=== PATIENT | female | born 1955 | race Caucasian/White ===

== ENCOUNTER 2021-06-20 09:05 | Outpatient (CLI) | payer MEDICARE, SELFPAY ==
--- NOTE | ~2021-06-20 | MM_ITS ---
EXAMINATION: MM screening [facility] BI w reggie HISTORY: Screening mammogram TECHNIQUE: Craniocaudal and mediolateral oblique 3-D tomosynthesis images were obtained and synthetic 2-D images were generated. CAD analysis was submitted and interpreted. COMPARISON: 02/20/2019 bilateral digital screening mammogram BREAST PARENCHYMAL COMPOSITION: The breasts are almost entirely fatty. FINDINGS: There is no evidence of suspicious mass, calcification, or architectural distortion to sugg est malignancy in either breast. There has been no suspicious interval change. IMPRESSION: 1. No mammographic evidence of malignancy. 2. Recommend routine screening mammography in one year. BI-RADS Category 1: Negative Reviewed, dictated and finalized at location A.
[2021-06-20 10:08] LABS: Basophils Absolute Auto 0.1 K/mm3 (0.0-0.1); Basophils Percent Auto 0.6 % (0.2-1.2); Eosinophils Absolute Auto 0.1 K/mm3 (0-0.3); Eosinophils Percent Auto 1.3 % (0-4.4); Hematocrit 48.7 % (37.0-47.0); Hemoglobin 15.5 g/dL (12.0-15.0); Immature Granulocyte Absolute 0.04 K/mm3 (0.00-0.031); Immature Granulocyte Percent A 0.4 % (0-0.5); Lymphocytes Absolute Auto 2.01 K/mm3 (0.9-3.2); Lymphocytes Percent Auto 21.2 % (18.3-44.2); Mean Corpuscular HGB Conc 31.8 g/dl (32-36); Mean Corpuscular Hemoglobin 31.5 pg (26-34); Mean Platelet Volume 9.2 fl (7.4-10.4); Monocytes Absolute Auto 0.8 K/mm3 (0.1-0.6); Monocytes Percent Auto 8.5 % (2.6-8.5); Neutrophils Absolute Auto 6.5 K/mm3 (1.3-6.7); Platelet Count Result 249 k/mm3 (150-375); Red Blood Count 4.92 M/mm3 (4.2-5.4); Red Cell Distribution Width 14.4 % (11.5-14.5); White Blood Count 9.5 K/mm3 (4.5-10.0)
[2021-06-20 10:19] LABS: Alanine Aminotransferase 27 U/L (4-35); Albumin Level 4.2 g/dL (3.5-5.1); Alkaline Phosphatase 83 U/L (38-126); Anion Gap 8 mmol/L (8-16); Aspartate Amino Transferase 25 U/L (14-36); Bilirubin,Total 0.4 mg/dL (0.2-1.3); Blood Urea Nitrogen 25 mg/dL (7-17); Calcium 10.4 mg/dL (8.4-10.2); Carbon Dioxide 29 mmol/L (22-30); Chloride 103 mmol/L (98-107); Cholesterol 200 mg/dL (0-200); Estimated Glomerular Filt Rate > 60; Glucose 104 mg/dL (65-110); HDL Direct 82 mg/dL; Potassium 4.3 mmol/L (3.4-5.0); Sodium 140 mmol/L (137-145); Triglycerides 97 mg/dL (<150)
[2021-06-20 10:30] LABS: LDL Cholesterol Direct 86 mg/dL
[2021-06-20 10:41] LABS: Hemoglobin A1C 5.6 % (<5.7)
== END 2021-06-20 09:06 | disposition home or self-care (01) ==
PROVIDERS: PCP Family Medicine; Visit Provider Family Medicine
DX: Z12.31 Encounter for screening mammogram for malignant neoplasm of breast (principal); Z51.81 Encounter for therapeutic drug level monitoring; Z79.899 Other long term (current) drug therapy; E78.5 Hyperlipidemia, unspecified; I10 Essential (primary) hypertension; R73.03 Prediabetes
CPT/HCPCS: 36415; 77063; 77067; 80053; 80061; 82248; 83036; 85025

== ENCOUNTER 2021-08-14 11:13 | Outpatient (CLI) | payer MEDICARE, SELFPAY ==
[2021-08-17 07:11] LABS: Ionized Calcium 5.4 mg/dL (4.8-5.6)
== END 2021-08-14 11:14 | disposition home or self-care (01) ==
LOC: ANHLAB 11:17
PROVIDERS: PCP Family Medicine; Visit Provider Family Medicine
DX: E83.52 Hypercalcemia (principal)
CPT/HCPCS: 36415; 82330

== ENCOUNTER 2023-04-09 13:52 | Outpatient (CLI) | payer MEDICARE, SELFPAY ==
--- NOTE | ~2023-04-09 | DEXA_ITS ---
Bone Density Report Name: DINORA PHAN Age: 67 Sex: Female Ethnicity: White Date of : 1955 Indication: postmenopausal; screening for osteoporosis; Referring Provider: SETIVEN, REGGIE Cr Study: Bone densitometry was performed. Exam Date: April 09, 2023 Accession number: [id number] Bone Density: Region BMD T-score Z-score Classification AP Spine(L1-L4) 1.127 0.7 2.8 Normal Femoral Neck (Left) 0.568 -2.5 -0.7 Osteoporosis Total Hip (Left) 0.702 -2.0 -0.5 Osteopenia Femoral Neck (Right) 0.594 -2.3 -0.5 Osteopenia Total Hip (Right) 0.793 -1.2 0.3 Osteopenia Total Hip Mean 0.748 -1.6 -0.1 Osteopenia World Health Organization criteria for BMD impression classify patients as: Normal (T-score at or above -1.0), Osteopenia (T-score between -1.0 and -2.5), or Osteoporosis (T-score at or below -2.5). 10-year Fracture Risk: FRAX not reported because: Some T-score for Spine Total or Hip Total or Femoral Neck at or below -2.5 Clinical Information Provided by Patient: Smokes Has used the following medications: Calcium Menopause Age: 46 Onset of menses at age 9 Number of children 1 Impression: The patient has osteoporosis, based on the Left Femoral Neck T-score. The patient has risk factors, including: smoking. Discussion: INCREASED RISK OF FRACTURE. BONE DENSITY IS UNDESIRABLY LOW AT ONE OR MORE SKELETAL SITES, CONSISTENT WITH POSTMENOPAUSAL OSTEOPOROSIS. This patient's lowest T-score meets the World Health Organization's (WHO) criteria for osteoporosis at one or more sites (T-score -2.5 or below). In untreated patients, the risk of osteoporotic fracture increases approximately two-fold for each 1.0 SD decrease in T-score. Low bone density is not the only risk factor for fracture; also consider factors such as patient's age, frailty or poor health, risk of falling, risk of injury, previous osteoporotic fracture, family history of osteoporosis, cigarette smoking, low body weight, etc. Not everyone with low bone mineral density has osteoporosis; osteomalacia and other metabolic bone disorders should also be considered. Patients who have osteoporosis should be evaluated for specific diseases and conditions (secondary causes) that may cause or contribute to bone loss. The [place] [employer]ocrinologists (AACE) and National Osteoporosis Foundation (NOF) recommend pharmacologic intervention for all postmenopausal women whose T-score is in this range. The patient should follow a healthful lifestyle (good nutrition with adequate calcium and vitamin D, and appropriate weight-bearing exercise). Follow-Up: Consider a repeat BMD and Vertebral Fracture Assessment (VFA) exam in 2 years or sooner if medically necessary, to reassess this patient's status. Reported by: [facility] on 04/09/2023 2
--- NOTE | ~2023-04-09 | MM_ITS ---
EXAMINATION: MM screening [facility] BI w reggie HISTORY: Screening mammogram TECHNIQUE: Craniocaudal and mediolateral oblique 3-D tomosynthesis images were obtained and synthetic 2-D images were generated. CAD analysis was submitted and interpreted. COMPARISON: 06/20/2021, 02/20/2019 BREAST PARENCHYMAL COMPOSITION: There are scattered areas of fibroglandular density. FINDINGS: No suspicious mass, calcification, or architectural distortion are identified in either shalonda ast to suggest malignancy. There has been no suspicious interval change. IMPRESSION: 1. No mammographic evidence of malignancy. 2. Recommend routine screening mammography in one year. BI-RADS Category 1: Negative Reviewed, dictated and finalized at location A.
== END 2023-04-09 13:53 | disposition home or self-care (01) ==
LOC: ANHIMG 13:57
PROVIDERS: PCP Family Medicine; Visit Provider Family Medicine
DX: Z12.31 Encounter for screening mammogram for malignant neoplasm of breast (principal); Z78.0 Asymptomatic menopausal state; M81.0 Age-related osteoporosis without current pathological fracture; M85.852 Other specified disorders of bone density and structure, left thigh; M85.851 Other specified disorders of bone density and structure, right thigh
CPT/HCPCS: 77063; 77067; 77080

== ENCOUNTER 2023-09-03 09:40 | Outpatient (CLI) | payer MEDICARE, SELFPAY ==
--- NOTE | ~2023-09-03 | XR_ITS ---
Right Knee Technique: AP, lateral, and oblique views were obtained. Clinical History: Pain Findings: No fracture or dislocation is seen. Osseous alignment is anatomic. There is mild tricompart mental degenerative change. Soft tissues are unremarkable. No joint effusion is seen. Impression: No fracture or dislocation. Mild tricompartmental degenerative change. Reviewed, dictated and finalized at location . Impression: No fracture or dislocation. Mild tricompartmental degenerative change.
== END 2023-09-03 09:41 | disposition home or self-care (01) ==
LOC: ANHIMG 09:43
PROVIDERS: PCP Family Medicine; Visit Provider Nurse Practitioner Family
DX: M25.561 Pain in right knee (principal)
CPT/HCPCS: 73564

== ENCOUNTER 2024-02-18 15:36 | Outpatient (CLI) | payer MEDICARE, SELFPAY ==
--- NOTE | ~2024-02-18 | MR_ITS ---
EXAMINATION: MR lumbar spine wo con DATE: 02/18/2024 17:06 INDICATION: Degeneration of lumbar intervertebral discs. Low back pain. Numbness and tingling down bharti th legs. TECHNIQUE: Magnetic resonance imaging (MRI) of the lumbar spine was performed without intravenous con trast. Sequences included sagittal T2-weighted FSE, sagittal T2-weighted FS FSE, sagittal T1-weighted FSE, and axial T2-weighted FSE. COMPARISON: Lumbar spine MRI 09/07/2019 FINDINGS: There is 5 degrees levocurvature of lumbar spine. There is 3 mm retrolisthesis of L3 on L4, L4-L5, and L5 on S1. There is mild chronic anterior wedging of T12 and L1 vertebral bodies. There is mildly decreased disc height at T11-T12, moderately decreased disc height at T12-L1, mildly decrease d disc height at L2-L3, moderately decreased disc height at L3-L4 and L4-L5, and severely decreased d isc height at L5-S1. The distal spinal cord signal intensity is normal. The conus medullaris is at L2 . The following disc levels are specifically discussed: L1-L2: There is a central protrusion. There is severe bilateral facet joint osteoarthritis. There is no neural foraminal stenosis. There is mild central canal stenosis. L2-L3: The disc is bulging and has an annular fissure. There is severe bilateral facet joint osteoart hritis. There is mild bilateral neural foraminal stenosis. There is mild central canal stenosis. L3-L4: The disc is bulging and has an annular fissure. There is severe bilateral facet joint osteoart hritis. There is mild bilateral neural foraminal stenosis. There is mild central canal stenosis. L4-L5: The disc is bulging and has an annular fissure. There is moderate right and severe left facet joint osteoarthritis. There is mild right and moderate left neural foraminal stenosis. There is moder ate central canal stenosis. L5-S1: The disc is bulging and has an annular fissure. There is severe bilateral facet joint osteoart hritis. There is moderate bilateral neural foraminal stenosis. There is severe central canal stenosis . IMPRESSION: 1. Severe lumbar spondylosis, worsened from 09/07/2019. Reviewed, dictated and finalized at location A.
--- NOTE | ~2024-02-18 | CT_ITS ---
EXAMINATION:CT lung screening DATE: 02/18/2024 16:02 INDICATION: Personal history of nicotine dependence. Current smoker with 54 pack year history. TECHNIQUE: Computed tomography (CT) of the chest was performed without intravenous contrast. Automate d exposure control and iterative reconstruction technique were employed. The dose-length product (DLP ) was 104.50 mGy-cm. COMPARISON: None. FINDINGS: A calcified right lung nodule and calcified right hilar lymph nodes are consistent with old granulomatous disease. There is mild emphysema. There are scattered groundglass nodules in the lungs measuring up to 5 mm. No pleural effusion. The heart size is normal. No pericardial effusion. There is a small sliding hiatal hernia. Calcifications in the liver and spleen are consistent with old gran ulomatous disease. There are masses in the adrenal glands measuring low attenuation measuring up to 2 .4 cm on the left, consistent with adenomas. There is severe cervical spondylosis and moderate thorac ic spondylosis. IMPRESSION: 1. Lung-RADS category 2: Benign appearance or behavior. Continue annual screening with noncontrast lo w-dose chest CT in 12 months. Reviewed, dictated and finalized at location A. IMPRESSION: 1. Lung-RADS category 2: Benign appearance or behavior. Continue annual screeni ng with noncontrast low-dose chest CT in 12 months.
--- NOTE | ~2024-02-18 | XR_ITS ---
XR_[id number] 02/18/2024 16:11 Indication: Neck pain Procedure: 5 views of the cervical spine Comparison: No prior studies for comparison. Findings: Vertebral body heights are maintained. No acute fracture or traumatic malalignment. There i s degenerative disc disease and endplate hypertrophy at C4-5, C5-6 and C6-7. No prevertebral soft tis prakash swelling. There is advanced multilevel uncinate and facet hypertrophy. Lung apices are normal. Th ere is carotid atherosclerosis. Odontoid process is unremarkable. Impression: 1: Moderate cervical spondylosis. Reviewed, dictated and finalized at location B. Impression: 1: Moderate cervical spondylosis.
== END 2024-02-18 15:37 | disposition home or self-care (01) ==
PROVIDERS: PCP Family Medicine; Visit Provider Family Medicine
DX: Z12.2 Encounter for screening for malignant neoplasm of respiratory organs (principal); M51.36 Other intervertebral disc degeneration, lumbar region; M43.06 Spondylolysis, lumbar region; M43.02 Spondylolysis, cervical region; Z87.891 Personal history of nicotine dependence; Z12.31 Encounter for screening mammogram for malignant neoplasm of breast
CPT/HCPCS: 71271; 72040; 72148

== ENCOUNTER 2024-05-26 12:29 | Emergency (ER) | payer MEDICARE, SELFPAY ==
--- NOTE | ~2024-05-26 | US_ITS ---
EXAMINATION: US venous doppler [facility] DATE: 05/26/2024 14:36 INDICATION: Lower limb pain TECHNIQUE: Grayscale ultrasound images without and with compression and Doppler ultrasound images of the left lower extremity veins were obtained. COMPARISON: None. FINDINGS: The visualized portions of left common femoral vein, profunda (deep) femoral vein, femoral vein, popl iteal vein, peroneal veins, posterior tibial veins, gastrocnemius vein and greater saphenous vein out flow are patent. 3.9 x 1.9 x 1.7 cm Thurston's cyst at the left popliteal fossa. IMPRESSION: 1. No deep venous thrombosis in the left lower limb. 2. Moderate-sized Thurston's cyst at the left popliteal fossa. Reviewed, dictated and finalized at location B.
[2024-05-26 12:34] VITALS: BP 104/78; PULSE 102; RESP 16; TEMP 36.5
--- NOTE | 2024-05-26 14:43 | ED.GENADULT ---
HPI - General Adult General Chief complaint: Extremity Injury, Lower Stated complaint: L leg pain Time Seen by Provider: 05/26/24 13:44 History of Present Illness HPI narrative: Patient 69-year-old female who presents emergency department with chief complaint of left lower extremity pain. Patient reports she has pain in the left calf area reports that also has a tingling sensation in the calf. The patient reports he has had pain in the left gluteal area and has had sciatic issues the patient denies bowel or bladder incontinence denies footdrop Related Data Allergies Allergy/AdvReac Type Severity Reaction Status Date / Time pregabalin Allergy Unknown Unknown Verified 05/26/24 13:22 Review of Systems Review of Systems: A 10 system review of systems was completed on the patient and is negative except for what is stated in the HPI. Nursing and ancillary documentation was reviewed. [facility] Family History Family History Father Diabetes mellitus Hypertension Mother Family history of throat cancer Other Family history of arthritis Social History Social History Smoking status: Current every day smoker Alcohol intake: current Exam Narrative: GENERAL: Well-appearing, well-nourished, and in no acute distress. HEAD: Normocephalic, atraumatic. EYES: PERRLA and EOMI. ENT: Nares clear, no rhinorrhea or epistaxis. Mucous membranes moist. NECK: Supple. CHEST: Clear to auscultation. No respiratory distress. HEART: Regular rate and rhythm. No murmur heard. Normal peripheral pulses. ABDOMEN: Soft, nontender, nondistended, normal active bowel sounds. EXTREMITIES: Normal range of motion. No edema. Intact dorsalis pedis pulses, no footdrop no saddle anesthesia SKIN: Warm, dry, no rash. NEURO: No focal deficits. Alert and oriented x3. PSYCH: Normal mood and affect. Course Vital Signs Vital signs: Vital Signs Temperature 36.5 C 05/26/24 12:34 Pulse Rate 102 H 05/26/24 12:34 Respiratory Rate 16 05/26/24 12:34 Blood Pressure 104/78 05/26/24 12:34 Oxygen Delivery Room Air 05/26/24 12:34 Temperature 36.5 C 05/26/24 12:34 Pulse Rate 102 H 05/26/24 12:34 Respiratory Rate 16 05/26/24 12:34 Blood Pressure 104/78 05/26/24 12:34 Oxygen Delivery Room Air 05/26/24 12:34 Medical Decision Making MDM Narrative Medical decision making narrative: Differential diagnosis includes sciatica, radiculopathy, DVT, Ultrasound showed no evidence of DVT and showed evidence of Thurston's cyst Prior outpatient studies were reviewed with the patient had a recent MRI that showed extensive degenerative disease Patient is paresthesias could be secondary to sciatica the patient will be started on anti-inflammatories and also started on a steroid pulse. Vital Signs Vital Signs: Vital Signs Temperature 36.5 C 05/26/24 12:34 Pulse Rate 102 H 05/26/24 12:34 Respiratory Rate 16 05/26/24 12:34 Blood Pressure 104/78 05/26/24 12:34 Oxygen Delivery Room Air 05/26/24 12:34 Temperature 36.5 C 05/26/24 12:34 Pulse Rate 102 H 05/26/24 12:34 Respiratory Rate 16 05/26/24 12:34 Blood Pressure 104/78 05/26/24 12:34 Oxygen Delivery Room Air 05/26/24 12:34 Discharge Plan Discharge Clinical Impression: Sciatica, Thurston cyst Patient Disposition: Home, Self-Care Condition: Stable Instructions: Antibiotic Form, Sciatica (ED), Thurston Cyst (ED) Prescriptions: New diclofenac potassium 50 mg tablet 50 mg PO TID PRN (Reason: pain) Qty: 21 0RF prednisone 20 mg tablet 40 mg PO DAILY 5 Days Qty: 10 0RF Follow-up/Referrals: Sallie,Angela Cr MD [Primary Care Provider] - Lanette Mancia DO [Physician] - Time of Disposition: 14:46
[2024-05-26] MEDS: dexAMETHasone SOD PHOS INJ 10 MG/ML 1 ML VIAL IM (15:01)
[2024-05-26] MEDS: KETOROLAC 30 MG/ML VIAL (*BKC) IM (15:01)
== END 2024-05-26 15:10 | disposition home or self-care (01) ==
PROVIDERS: Emergency Provider Emergency Medicine; PCP Family Medicine
DX: M54.32 Sciatica, left side (principal); M71.22 Synovial cyst of popliteal space [Baker], left knee; F17.200 Nicotine dependence, unspecified, uncomplicated
CPT/HCPCS: 93971; 96372; 99284; J1100; J1885

== ENCOUNTER 2024-06-14 09:59 | Emergency (ER) | payer MEDICARE, SELFPAY ==
[2024-06-14 10:06] VITALS: BP 121/83; PULSE 114; RESP 18; TEMP 36.5; O2SAT 100
--- NOTE | 2024-06-14 12:22 | ED.LOWEXIN ---
HPI - Extremity Injury (Lower) General Chief Complaint: Extremity Injury, Lower Stated Complaint: left ankle swelling, sciatic pain Time Seen by Provider: 06/14/24 11:36 History of Present Illness HPI Narrative: Pt presents with persistent pain from buttock down back of left leg to ankle. This started 3 weeks ago and pt has been seen in ED here and urgicare and PCP and given rounds of steroids and narcotics and muscle relaxers without much relief. Pt denies weakness or numbness or problems with bladder or bowels. Related Data Allergies Allergy/AdvReac Type Severity Reaction Status Date / Time pregabalin Allergy Unknown Unknown Verified 05/26/24 13:22 Review of Systems Review of Systems: All systems reviewed & are unremarkable except as noted in HPI and below PMFSH Family History Family History Father Diabetes mellitus Hypertension Mother Family history of throat cancer Other Family history of arthritis Social History Social History Smoking status: Current every day smoker Alcohol intake: current Exam Const: General: healthy appearing and no acute distress Nutritional Appearance: well nourished Orientation/consciousness: patient oriented x3 Limitations: no limitations Eyes: Conjunctivae: conjunctivae normal EOM: EOMs intact bilaterally Neck: Neck: normal visual inspection Chest: Chest palpation & inspection: normal inspection of the chest Resp: Effort & Inspection: normal respiratory effort Auscultation: clear to auscultation bilaterally Cardio: Rate: regular rate Rhythm: regular rhythm GI: GI Palp: Yes Soft to palpation and No Tenderness to palpation present (GI) Auscultation: normal bowel sounds Back/Spine/Pelvis: Back: no CVA tenderness Skin: General skin exam: normal color Rashes: no rashes Wounds: no wounds Neuro: General: patient oriented x3, moves all extremities, no meningeal signs and no focal motor deficits Speech: normal speech Extrem: Other: tender sciatic groove to palpation Psych: Mental Status: mental status grossly normal Affect: normal affect Attitude: cooperative Course Vital Signs Vital signs: Vital Signs Temperature 97.7 F 06/14/24 10:06 Pulse Rate 114 H 06/14/24 10:06 Respiratory Rate 18 06/14/24 10:06 Blood Pressure 121/83 06/14/24 10:06 Pulse Oximetry 100 06/14/24 10:06 Oxygen Delivery Room Air 06/14/24 10:06 Temperature 97.7 F 06/14/24 10:06 Pulse Rate 95 06/14/24 14:22 Respiratory Rate 18 06/14/24 14:22 Blood Pressure 123/76 06/14/24 14:22 Pulse Oximetry 96 06/14/24 14:22 Oxygen Delivery Room Air 06/14/24 10:06 MDM - Extremity Injury (Lower) MDM Narrative Medical decision making narrative: Pt has been on severeal rounds of steroids and pain meds for sciatic symptoms without much change. discussed with dr tavarez does not do injections for this suggested Dr Dean Valentine in [place]. discussed with Dr Valentine office, have pt call for Wednesday appointment [phone] Discharge Plan Discharge Clinical Impression: Sciatica Patient Disposition: Home, Self-Care Condition: Stable Instructions: Antibiotic Form Additional Instructions: call Dr Valentine office in [place] [phone] Prescriptions: New prednisone 10 mg tablets,dose pack See Rx Instructions .ROUTE .COMPLEX Qty: 48 0RF Rx Instructions: orally per package directions hydrocodone-acetaminophen 5-325 mg tablet 1 tablet PO Q6H PRN (Reason: pain) Qty: 14 0RF No Action diclofenac potassium 50 mg tablet 50 mg PO TID PRN (Reason: pain) Qty: 21 0RF prednisone 20 mg tablet 40 mg PO DAILY 5 Days Qty: 10 0RF Follow-up/Referrals: UNKNOWN,DOCTOR [Primary Care Provider] -
[2024-06-14 14:22] VITALS: BP 123/76; PULSE 95; RESP 18; O2SAT 96
== END 2024-06-14 14:31 | disposition home or self-care (01) ==
PROVIDERS: Emergency Provider Emergency Medicine
DX: M54.32 Sciatica, left side (principal); F17.200 Nicotine dependence, unspecified, uncomplicated
CPT/HCPCS: 99283